=== PATIENT | male | born 1945 | race African-American/Black ===

== ENCOUNTER 2024-11-16 13:24 | Outpatient (AMB) | payer MEDICARE, SELFPAY ==
--- NOTE | 2024-11-16 13:26 | MHC.OFFVIS ---
Vital Signs 11/16/24 13:31 Height 5 ft 4 in Weight 131 lb BMI 22.5 BP 130/64 Blood Pressure Location Lt brachial Position Sitting Pulse 90 Pulse Source Pulse Oximeter Pulse Oximetry (%) 99 Oxygen Delivery Method Room Air Intake Visit Reasons: ENP-Tremor/Upper ext neuropathy Intake Note: Patient present with new patient appointment for tremor and upper extremity neuropathy Market Research Consultant Required: No Accompanied by: Self / Same As Patient Allergies Penicillins Allergy (Unknown, Verified 11/16/24 13:32) Unknown Medication List - Last Reconciled 11/16/24 by Alicja Venegas MD bimatoprost 0.01% (Lumigan) 1 drp ophthalmic (eye) DAILY cyanocobalamin (vitamin B-12) 1,000 mcg PO DAILY cyclobenzaprine 5 mg PO TID PRN dorzolamide 2% 2 drps ophthalmic (eye) BID finasteride (Proscar) 5 mg PO DAILY fluticasone propionate 50 mcg/actuation (Allergy Relief (fluticasone)) 2 sprays intranasal DAILY losartan-hydrochlorothiazide 100-25 mg (Hyzaar) 1 tab PO DAILY omeprazole 40 mg PO DAILY HPI Comments Details: 79y/o Right handed male comes for evaluation of tremors and left leg pain and numbness. He started notices left toe tremors intermittently 2-3 years. He denies pain or stiffness when he has the tremors. He had 1 episode of tremors in left hand. The tremors are worse when cold. About 1 year ago he started noticing numbness in his lateral leg- knee to ankle intermittently. He denies weakness in his legs. He also has left hip pain . He denies any radiating pain. For the past 3 days he has stiffness in his knees when he wakes up in the morning.. 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 FORMERLY [facility] Medical History (Updated 11/16/24 @ 14:06 by Alicja Venegas MD) Knee pain Aneurysm Left leg numbness Coarse tremors Hiatal hernia IBS (irritable bowel syndrome) Lactose intolerance Cystic kidney disease, congenital Splenic infarction Thrombocytopenia GERD (gastroesophageal reflux disease) Enlarged prostate with lower urinary tract symptoms (LUTS) PIN (prostatic intraepithelial neoplasia) Hypertension Diverticulosis Cervical radiculopathy Epigastric pain Sickle cell trait Sinus bradycardia COVID Chest pain Family History Father Prostate cancer Sister Breast cancer Social History Alcohol intake: current Alcohol intake frequency: holidays/special occasions only Patient Tobacco Use Status: Never used Tobacco Physical Exam Vital Signs: Last Vital Signs Pulse 90 11/16/24 13:31 BP 130/64 11/16/24 13:31 Pulse Ox 99 11/16/24 13:31 Oxygen Delivery Method Room Air 11/16/24 13:31 BMI result Body Mass Index 22.5 Const General: cooperative, healthy appearing, comfortable and no acute distress Nutritional Appearance: average body habitus Orientation/consciousness: patient oriented x3 Neuro Other: intermittent left foot tremors General: patient oriented x3, gait normal, tone normal, moves all extremities and no focal motor deficits Cranial nerves: Yes Facial sensation intact/muscles of mastication intact, Yes Bilaterally intact EOM present, Yes Nystagmus not present, Yes Normal facial strength present, Yes Midline tongue present, Yes Symmetric palate elevation present and Yes Ability to bilaterally elevate shoulders present Cognition (Neuro): normal cognition Gait exam (Neuro): Normal gait present Motor exam (neuro): 5/5 motor strength present throughout and Normal motor muscle tone present throughout Deep tendon reflexes (DTR's): Right triceps reflex intensity grade: 1+, Left triceps reflex intensity grade: 1+, Rt Biceps (C5, C6): 1+, Left biceps reflex intensity grade: 1+, Right brachioradialis reflex intensity grade: 1+, Left brachioradialis reflex intensity grade: 1+, Right patellar reflex intensity grade: 1+ and Left patellar reflex intensity grade: 1+ Coordination: [id number] test normal Assessment & Plan Assessment & Plan (1) Coarse tremors: Comment: left foot intermittent Code(s): G25.2 - Other specified forms of tremor Category: Medical (2) Left leg numbness: Code(s): R20.0 - Anesthesia of skin Category: Medical (3) Aneurysm: Comment: 3mm right cavernous ICA Code(s): I72.9 - Aneurysm of unspecified site Category: Medical Plan I will evaluate him with EMG The tremors are intermittent and mild - can be followed up clinically MRI and mRA reviewed PT for knee stiffness and pain- Orders: Orders NE electromyogram (EMG) Today R20.0 - Anesthesia of skin NE nerve conduction velocity Today R20.0 - Anesthesia of skin PT Evaluation and Treatment Today M25.569 - Pain in unspecified knee Coding Level of Care Code New Pt Level 4 (97742) Diagnoses Coarse tremors G25.2 Left leg numbness R20.0 Aneurysm I72.9
[2024-11-16 13:31] VITALS: BP 130/64; PULSE 90; O2SAT 99; BMI 22.5
--- OUTSIDE RECORDS SUMMARY | 2024-11-16 15:49 | XMS_ITS | Encounter Summary ---
Author Organization [facility] Address [address] [place] [address] Care Team Providers Care Motor Coach Chauffeur Name Role Phone Brandon Bates MD Primary Care Provider [phone] Encounter Details Date Type Department Care Team (Late st Contact Info) Description 08/09/2024 Lab Requisition [facility] - Main Lab [address] [facility] [place] [address] Shashi Andrea MD [address] [place] [address] Elevated prostate specific antigen (PSA) Social History Tobacco Use Types Packs/Day Years Used Date Smoking Tobacco: Never Smokeless Tobacco: Never Alcohol Use Standard Drinks/Week Comments Yes 0 (1 standard drink = 0.6 oz pur e alcohol) Housing Instability Answer Date Recorde d Are you worried that in the next 2 months you may not have stable housing? No 07/20/2024 Food Access & Nutrition Answer Date Rec orded Do you have access to a vari ety of food including fruits and vegetables? Yes 07/20/2024 Health Literacy Answer Date Recorded How often do you need to hav e someone help you when you read instructions, pamphlets, or other written material from your doctor or pharmacy? Never 07/20/2024 Caregiver: How often do you need to have someone help you when you read instructions, pamphlets, or other written material from your doctor or pharmacy? Not on file 07/20/2024 Financial Risk Answer Date Recorded How hard is it for you to pa y for the very basics like food, housing, medical care, and air conditioning / heating? Not very hard 07/20/2024 Transportation Answer Date Recorded Has the lack of transportati on kept you from meetings, work, or from getting things needed for daily living? No Has the lack of transportati on kept you from medical appointments or from getting medications? No 07/20/2024 Social Isolation Answer Date Recorded How often do you feel lonely or isolated from th ose around you? Never 07/20/2024 Food Risk Answer Date Recorded Within the past 12 months we worried whether our food would run out before we got money to buy more. Never true 07/20/2024 Within the past 12 months th e food we bought just didn't last and we didn't have money to get more. Never true 07/20/2024 Dependent Care Answer Date Recorded Do you need help finding or paying for care for your loved ones. For example, child welfare social worker or elderly care for an older adult? No 07/20/2024 Education Answer Date Recorded Do you think completing more education or training, like finishing a GED, going to college, or learning a trade, would be helpful for you? No 07/20/2024 Employment and Income Answer Date Recor ded During the last four weeks, have you been actively looking for work? No 07/20/2024 Living Situation Answer Date Recorded What is your living situation? 0 07/20/2024 Sex and Gender Information Value Date Recorded Sex Assigned at Male 04/26/2024 2:28 PM EST Legal Sex Male 9:58 AM EST Gender Identity Male 04/26/2024 2:28 PM EST Sexual Orientation Not on file documented as of this encounter Plan of Treatment Upcoming Encounters Date Type Department Care Team (Late st Contact Info) Description 05/21/2025 11:00 AM EST Office Visit [facility] Hematology Oncology [address] [place] [address] Tessie Christine MD [address] [place] [id number] documented as of this encounter Procedures Procedure Name Priority Date/Time Associated Diagnosis Comments AP OUTSIDE CONSULT Routine 08/08/2024 Elevated prostate specific antigen (PSA) documented in this encounter Results * Anatomic pathology outside consult (08/08/2024) Final Diagnosis A. Prostate, Left Mid [place] Biopsy: - Benign prostatic tissue. B. Prostate, Left Lat [place] Biopsy: - Benign prostatic tissue. C. Prostate, Left Mid Mid Biopsy: - Benign prostatic tissue. D. Prostate, Left Lat Mid Biopsy: - Benign prostatic tissue. E. Prostate, Left Mid Base Biopsy: - Benign prostatic tissue. F. Prostate, Left Lat Base Biopsy: - Benign prostatic tissue. G. Prostate, Right Mid [place] Biopsy: - Benign prostatic tissue. H. Prostate, Right Lat [place] Biopsy: - Benign prostatic tissue. I. Prostate, Right Mid Mid Biopsy: - Benign prostatic tissue. J. Prostate, Right Lat Mid Biopsy: - Benign prostatic tissue. K. Prostate, Right Mid Base Biopsy: - Prostatic acinar adenocarcinoma (conventional type), grade group 1 (Zena score 3+3=6). - Tumor continuously involves 3% of 1 of 1 tissue core. L. Prostate, Right Lat Base Biopsy: - Benign prostatic tissue. 08/10/2024 9:07 AM [facility] Clinical Information Elevated PSA PSA: 15.8 (06/19/24) [id number] 08/10/2024 9:[address] [facility] Gross Description A. Prostate, Left Mid [place] Biopsy: Received, properly labeled, are two H and E stained slides and two unstained slides. B. Prostate, Left Lat [place] Biopsy: Received, properly labeled, are two H and E stained slides and two unstained slides. C. Prostate, Left Mid Mid Biopsy: Received, properly labeled, are two H and E stained slides and two unstained slides. D. Prostate, Left Lat Mid Biopsy: Received, properly labeled, are two H and E stained slides and two unstained slides. E. Prostate, Left Mid Base Biopsy: Received, properly labeled, are two H and E stained slides and two unstained slides. F. Prostate, Left Lat Base Biopsy: Received, properly labeled, are two H and E stained slides and two unstained slides. G. Prostate, Right Mid [place] Biopsy: Received, properly labeled, are two H and E stained slides and two unstained slides. H. Prostate, Right Lat [place] Biopsy: Received, properly labeled, are two H and E stained slides and two unstained slides. I. Prostate, Right Mid Mid Biopsy: Received, properly labeled, are two H and E stained slides and two unstained slides. J. Prostate, Right Lat Mid Biopsy: Received, properly labeled, are two H and E stained slides and two unstained slides. K. Prostate, Right Mid Base Biopsy: Received, properly labeled, are two H and E stained slides and two unstained slides. L. Prostate, Right Lat Base Biopsy: Received, properly labeled, are two H and E stained slides and two unstained slides. / 08/10/2024 9:07 AM [facility] Disclaimer Unless otherwise specified, all tissue is 10% NB formalin fixed and paraffin embedded. Technical pathology services provided by [facility] at [address] [place] [address] [address], [place] [address] (CLIA #[id number]/Stephy Monterroso MD, Press Manager) 08/10/2024 9:07 AM [facility] Tissue Prostate / Unknown 08/08/20242024 11:22 AM EST Tissue specimen (specimen) Prostate / Unknown 08/08/2024 08/09/2024 11 :24 AM EST Tissue specimen (specimen) Prostate / Unknown 08/08/2024 08/09/2024 11 :24 AM EST Tissue specimen (specimen) Prostate / Unknown 08/08/2024 08/09/2024 11 :24 AM EST Tissue specimen (specimen) Prostate / Unknown 08/08/2024 08/09/2024 11 :24 AM EST Tissue specimen (specimen) Prostate / Unknown 08/08/2024 08/09/2024 11 :24 AM EST Tissue specimen (specimen) Prostate / Unknown 08/08/2024 08/09/2024 11 :24 AM EST Tissue specimen (specimen) Prostate / Unknown 08/08/2024 08/09/2024 11 :24 AM EST Tissue specimen (specimen) Prostate / Unknown 08/08/2024 08/09/2024 11 :24 AM EST Tissue specimen (specimen) Prostate / Unknown 08/08/2024 08/09/2024 11 :24 AM EST Tissue specimen (specimen) Prostate / Unknown 08/08/2024 08/09/2024 11 :24 AM EST Tissue specimen (specimen) Prostate / Unknown 08/08/2024 08/09/2024 11 :24 AM EST Shashi Andrea MD LAB PATHOLOGY ORDERABLES Final Result [facility] [address] [place] [address], documented in this encounter Visit Diagnoses Diagnosis Elevated prostate specific antigen (PSA) documented in this encounter Additional Health Concerns Assessment Noted Time PHQ-9 Depression Total Score: 0 07/20/19 25 8:18 PM EST documented as of this encounter Care Teams Motor Coach Chauffeur Relationship Specialty Start Date End Date Brandon Bates MD [address] [place] [id number] PCP - General Internal Medicine 05/13/17 documented as of this encounter
== END 2024-11-16 14:16 | disposition home or self-care (01) ==
LOC: HO.HSMS 13:25
PROVIDERS: PCP Internal Medicine; Visit Provider Psychiatry & Neurology Neurology
DX: G25.2 Other specified forms of tremor (principal); R20.0 Anesthesia of skin; I72.9 Aneurysm of unspecified site
CPT/HCPCS: 99204

== ENCOUNTER → 2024-11-16 13:24 | Outpatient (BNVA) | payer MEDICARE, SELFPAY | PROVIDERS: PCP Internal Medicine; Visit Provider Psychiatry & Neurology Neurology | DX: R20.0 Anesthesia of skin (principal); G25.2 Other specified forms of tremor; I72.9 Aneurysm of unspecified site | CPT/HCPCS: 99202 ==

== ENCOUNTER 2025-03-19 12:49 | Outpatient (AMB) | payer MEDICARE, SELFPAY ==
--- NOTE | 2025-03-19 12:50 | A.OFFVIS_ITS ---
Vital Signs 03/19/25 12:51 Height 5 ft 4 in Weight 125 lb 8 oz BMI 21.5 BP 132/70 Blood Pressure Location Rt brachial Position Sitting Pulse 64 Pulse Source Pulse Oximeter Pulse Oximetry (%) 100 Oxygen Delivery Method Room Air Intake Visit Reasons: 4m follow up Intake Note: Follow up Parkinson's disease with dyskinesia, tremors and aneurysm Flat Finisher Required: No Accompanied by: Self / Same As Patient Allergies Penicillins Allergy (Unknown, Verified 03/19/25 12:51) Unknown Medication List - Last Reconciled 03/19/25 by Alicja Venegas MD bimatoprost 0.01% (Lumigan) 1 drp ophthalmic (eye) DAILY cyanocobalamin (vitamin B-12) 1,000 mcg PO DAILY cyclobenzaprine 5 mg PO TID PRN dorzolamide 2% 2 drps ophthalmic (eye) BID fluticasone propionate 50 mcg/actuation (Allergy Relief (fluticasone)) 2 sprays intranasal DAILY losartan-hydrochlorothiazide 100-25 mg (Hyzaar) 1 tab PO DAILY omeprazole 40 mg PO DAILY HPI Comments Details: 80y/o Right handed male comes for F/u of tremors and left leg pain and num bness.He has been doing good. He thinks the warm weather helps. EMG NCS was normal . He is c/o tingling and numbness in left foot. He is also c/o left hip pain - ortho thinks it is sciatica History from 11/2024 He started notices left toe tremors intermittently 2-3 years. He denies pain or stiffness when he has the tremors. He had 1 episode of tremors in left hand. The tremors are worse when cold. About 1 year ago he started noticing numbness in his lateral leg- knee to ankle intermittently. He denies weakness in his legs. He also has left hip pain . He denies any radiating pain. For the past 3 days he has stiffness in his knees when he wakes up in the morning.. 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 FORMERLY [facility], [facility] Medical History (Updated 03/19/25 @ 13:20 by Alicja Venegas MD) Left hip pain Knee pain Aneurysm Left leg numbness Coarse tremors Hiatal hernia IBS (irritable bowel syndrome) Lactose intolerance Cystic kidney disease, congenital Splenic infarction Thrombocytopenia GERD (gastroesophageal reflux disease) Enlarged prostate with lower urinary tract symptoms (LUTS) PIN (prostatic intraepithelial neoplasia) Hypertension Diverticulosis Cervical radiculopathy Epigastric pain Sickle cell trait Sinus bradycardia COVID Chest pain Family History Father Prostate cancer Sister Breast cancer Social History Alcohol intake: current Alcohol intake frequency: holidays/special occasions only Patient Tobacco Use Status: Never used Tobacco Physical Exam Vital Signs: Last Vital Signs Pulse 64 03/19/25 12:51 BP 132/70 03/19/25 12:51 Pulse Ox 100 03/19/25 12:51 Oxygen Delivery Method Room Air 03/19/25 12:51 BMI result Body Mass Index 21.5 Const General: cooperative, healthy appearing, comfortable and no acute distress Nutritional Appearance: average body habitus Orientation/consciousness: patient oriented x3 Neuro Other: intermittent left foot tremors General: patient oriented x3, gait normal, tone normal, moves all extremities and no focal motor deficits Cranial nerves: Yes Facial sensation intact/muscles of mastication intact, Yes Bilaterally intact EOM present, Yes Nystagmus not present, Yes Normal facial strength present, Yes Midline tongue present, Yes Symmetric palate elevation present and Yes Ability to bilaterally elevate shoulders present Cognition (Neuro): normal cognition Gait exam (Neuro): Normal gait present Motor exam (neuro): 5/5 motor strength present throughout and Normal motor muscle tone present throughout Coordination: [id number] test normal Assessment & Plan Assessment & Plan (1) Coarse tremors: Comment: left foot intermittent Code(s): G25.2 - Other specified forms of tremor Category: Medical (2) Left leg numbness: Comment: emg - normal Code(s): R20.0 - Anesthesia of skin Category: Medical (3) Aneurysm: Comment: 3mm right cavernous ICA Code(s): I72.9 - Aneurysm of unspecified site Category: Medical (4) Left hip pain: Comment: ? sciatica Code(s): M25.552 - Pain in left hip Category: Medical Plan EMG results discussed The tremors are intermittent and mild - can be followed up clinically MRI and mRA reviewed PT for left hip and knee pain Orders: Orders PT Evaluation and Treatment Today M25.552 - Pain in left hip Coding Level of Care Code Est Pt Level 4 (22764) Diagnoses Coarse tremors G25.2 Left leg numbness R20.0 Aneurysm I72.9 Left hip pain M25.552
[2025-03-19 12:51] VITALS: BP 132/70; PULSE 64; O2SAT 100; BMI 21.5
--- OUTSIDE RECORDS SUMMARY | 2025-03-19 15:12 | XMS_ITS | Clinical Summary ---
Author Organization [facility] Address [address] [place] [address] Phone Care Team Providers Care Refrigeration Mechanic Helper Name Role Phone Brandon Bates MD Primary Care Provider [phone] Allergies Active Allergy Reactions Criticality Noted Date Comments Penicillins 11/04/2017 Medications bimatoprost (LUMIGAN) 0.01 % ophthalmic drops Bedtime 8 Active cyclobenzaprin e (FLEXERIL) 5 mg tablet Take 1 tablet (5 mg total) by mouth 3 (three) times a day if needed for muscle spasms. 30 tablet 1 5 Active omeprazole (PriLOSEC) [address] capsule TAKE 1 CAPSULE BY MOUTH EVERY DAY 90 capsule 1 5 Active losartan-hydro CHLOROthiazide (HYZAAR) 100-25 mg per tablet TAKE 1 TABLET BY MOUTH EVERY DAY 90 tablet 5 Active losartan-hydro CHLOROthiazide (HYZAAR) 100-25 mg per tablet TAKE 1 TABLET BY MOUTH EVERY DAY 90 tablet 1 5 03/16/20 25 Discontinued Active Problems Problem Noted Date Diagnosed Date Pain of left hip 08/24/2024 Sickle cell trait (CMS/HCC V24) 07/21/2024 Numbness and tingling of right upper extremity 0 11/26/2017 Cervical radiculopathy Overview (08/24/2024): DX:Cervical radiculopathy Encounters Date Type Department Care Team Description 02/19/2025 8:45 AM EDT Office Visit [facility] Hematology Oncology [address] [place] [address] Tessie Christine MD Anemia of chronic disease (Primary Dx); Sickle cell trait ([facility] V24); Monoclonal gammopathy 02/13/[address] [facility] Hematology Oncology [address] [place] [phone] Tessie Christine MD 01/08/[address] [facility] Hematology Oncology [address] [place] [phone] Tessie Christine MD 01/08/[address] [facility] Hematology Oncology [address] [place] [phone] Marguerite Velasco MA 01/03/[address] [facility] Hematology Oncology [address] [place] [phone] Tessie Christine MD 12/25/[address] [facility] Hematology Oncology [address] [place] [phone] Marguerite Velasco MA 12/22/2024 8:45 AM EDT Office Visit [facility] Hematology Oncology [address] [place] [phone] Tessie Christine MD MDS (myelodysplastic syndrome) ([facility] V24, [facility] V28) (Primary Dx); MGUS (monoclonal gammopathy of unknown significance) from Last 3 Months Immunizations Immunization Administration Dates Next Due Influenza trivalent, 0.5mL ( Fluzone High-dose) 65yo and older 03/03/2025 Pfizer SARS-CoV-2 COVID-19, mRNA, LNP-S, preservative free 09/13/2021,03/08/2021,08/10/2020,07/20 Pneumococcal conjugate 13 va lent (Prevnar 13, PCV13) 2mo and older 03/12/2017 Pneumococcal conjugate 20 va lent (Prevnar 20, PCV 20) 2mo and older 02/19/2025 Pneumococcal polysaccharide 23 valent (Pneumovax 23) 2yo and older 03/20/2019 Td Tetanus diptheria (Tdvax) 7yo and older 05/18/2022 Tdap Tetanus diptheria acell ular pertussis (Boostrix; Adacel) 7yo and older 01/01/2016,03/13/2011 Zoster recombinant (Shingrix ) 19yo and older 03/23/2022,01/06/2022 Medical History Medical History Date Comments Anemia DX:Anemia Sickle cell trait ([facility] V24) DX:Sickle cell trait ([facility]) Diabetes mellitus ([facility] V 24, [facility] V28) DX:Diabetes mellitus ([facility]) Emphysema of lung ([facility] V 24, [facility] V28) DX:Emphysema of lung (HCC) Cervical radiculopathy 12/28/2017 DX:Cervic al radiculopathy Cystic kidney disease, congenital 11/27/2014 DX:Cystic kidney disease, congenital Diverticulosis 12/03/2017 DX:Diverticulosi s Enlarged prostate with lower urinary tract symptoms (LUTS) 12/03/2017 DX:Enlarged prostate with lo wer urinary tract symptoms (LUTS) GERD (gastroesophageal reflux disease) 03/12/2017 DX:GERD (gastroesophageal reflux disease) Hiatal hernia 01/14/2011 DX:Hiatal hernia Hypertension 12/03/2017 DX:Hypertension Irritable bowel syndrome 06/11/2014 DX:Irri table bowel syndrome Lactase deficiency 08/15/2014 DX:Lactase de ficiency 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 DX: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 For example, child care worker or elderly care for an older [...] Date Recorded What is your living situation? Unrecognized valu e 07/20/2024 Sex and Gender Information Value Date Recorded Sex Assigned at Male 04/26/2024 2:28 PM EST Legal Sex Male 9:58 AM EST Gender Identity Male 04/26/2024 2:28 PM EST Sexual Orientation Not on file Obstetrics History Last Filed Vital Signs Vital Sign Reading Time Taken Comments Blood Pressure 155/72 02/19/2025 8:40 AM EDT Pulse 66 02/19/2025 8:40 AM EDT Temperature 36.1 C (96.9 F) 02/19/2025 8:40 AM EDT Respiratory Rate - - Oxygen Saturation 100% 02/19/2025 8:40 AM EDT Inhaled Oxygen Concentration - - Weight 56.7 kg (125 lb) 02/19/2025 8:40 AM EDT Height 165.1 cm (5' 5 ) 10/24/2024 8:52 AM EDT Body Mass Index 20.8 10/24/2024 8:52 AM EDT Plan of Treatment Upcoming Encounters Date Type Department Care Team (Late st Contact Info) Description 05/21/2025 11:00 AM EST Office Visit [facility] Hematology Oncology [address] [place] [phone] Tessie Christine MD [address] [place] [address] Health Maintenance Due Date Last Done Comments RSV Immunization Adult Patients (1 - 1-dose 75+ series) 02/02/2019 Medicare Annual Wellness Visit 05/23/2022 COVID-19 Vaccine (7 - Pfizer risk 2023- season) 2025 04/19/2024, 05/06/2022, 09/13/2021, Additional history exists Social Influencers of Health Screening 07/20/2025 07/20/2024 Falls Risk Assessment 10/24/2025 10/24/2024 Hypertension/CHF/CAD Annual BMP Blood Test 02/14/2026 02/14/2025, 12/18/2024, 03/20/2024 Cholesterol Screening (Lipid Panel) 07/21/2029 07/21/2024, 03/20/2024 DTaP,Tdap,and Td Vaccines (4 - Td or Tdap) 05/18/2032 05/18/2022, 01/01/2016, 03/13/2011 Zoster Vaccines Completed 03/23/2022, 01/06/2022 Depression Screening Completed 10/23/2024 Pneumococcal Vaccine: 50+ Years Completed 02/19/2025, 03/20/2019, 03/12/2017 Influenza Vaccine Completed 03/03/2025 HIB Vaccines Aged Out No longer eligi ble based on patient's age to complete this topic HPV Vaccines Aged Out No longer eligi ble based on patient's age to complete this topic Hepatitis A Vaccines Aged Out No long er eligible based on patient's age to complete this topic Hepatitis B Vaccines Aged Out No long er eligible based on patient's age to complete this topic IPV Vaccines Aged Out No longer eligi ble based on patient's age to complete this topic MMR Vaccines Aged Out No longer eligi ble based on patient's age to complete this topic Meningococcal ACWY Vaccine Aged Out N o longer eligible based on patient's age to complete this topic Meningococcal B Vaccine Aged Out No l onger eligible based on patient's age to complete this topic RSV Immunization Patients Under 20 months Aged Out No longer eligible based on patient's age to complete this topic Varicella Vaccines Aged Out No longer eligible based on patient's age to complete this topic Goals Goal Patient Goal Type Associated Problems Recent Progress Patient-Stated? Author PT LTGs General No Liam Hwang, PT Note: Pt will ambulate x6 minutes without LLE pain Pt will report no LLE pain with sit to stand x5 reps Pt will be independent with HEP Procedures Procedure Name Priority Date/Time Associated Diagnosis Comments CBC WITH AUTO DIFFERENTIAL Routine 02/14/2025 8:25 AM EDT MDS (myelodysplastic syndrome) ([facility] V24, [facility] V28) IMMUNOGLOBULINS IGG, IGA, IGM Routine 02/14/2025 8:25 AM EDT Myelodysplastic syndrome ([facility] V24, [facility] V28) COMPREHENSIVE METABOLIC PANEL Routine 02/14/2025 8:25 AM EDT MDS (myelodysplastic syndrome) ([facility] V24, [facility] V28) CBC AND DIFFERENTIAL Routine 02/14/2025 8:25 AM EDT MDS (myelodysplastic syndrome) ([facility] V24, [facility] V28) PROTHROMBIN TIME WITH INR Routine 01/03/2025 9:12 AM EDT MDS (myelodysplastic syndrome) ([facility] V24, [facility] V28) CBC WITH AUTO DIFFERENTIAL Routine 12/18/2024 10:16 AM EDT Anemia, unspecified type IgG lambda monoclonal gammopathy COMPREHENSIVE METABOLIC PANEL Routine 12/18/2024 10:16 AM EDT Anemia, unspecified type IgG lambda monoclonal gammopathy CBC AND DIFFERENTIAL Routine 12/18/2024 10:16 AM EDT Anemia, unspecified type IgG lambda monoclonal gammopathy LIPID PANEL WITH REFLEX TO DIRECT LDL Routine 07/21/2024 9:07 AM EST Primary hypertension from Last 3 Months or Most Recently Relevant to Health Maintenance Results * (ABNORMAL) CBC auto differential (02/14/2025 8:25 AM EDT) Only the most recent of2 resultswithin the time period is included. [facility] Signature WBC 3.9(L) 4.8 - 10.8 K/mcL LAB HEMETOLOGY METHOD 02/14/2025 11:48 AM EDT [facility] RBC 3.50(L) 4.50 - 5.50 M/mcL LAB HEMETOLOGY METHOD 02/14/2025 11:48 AM [facility] Hemoglobin 10.5(L) 13.5 - 17.5 g/dL LAB HEMETOLOGY METHOD 02/14/2025 11:48 AM [facility] Hematocrit 29.7(L) 42.0 - 54.0 % LAB HEMETOLOGY METHOD 02/14/2025 11:48 AM [facility] MCV 84.4 79.0 - 98.0 FL LAB HEMETOLOGY METHOD 02/14/2025 11:48 AM [facility] MCH 29.8 27.0 - 32.0 pcg LAB HEMETOLOGY METHOD 02/14/2025 11:48 AM [facility] MCHC 35.4 32.0 - 37.0 g/dL LAB HEMETOLOGY METHOD 02/14/2025 11:48 AM [facility] RDW 14.0 11.0 - 15.0 % LAB HEMETOLOGY METHOD 02/14/2025 11:48 AM [facility] Platelets 132 130 - 400 K/mcL LAB HEMETOLOGY METHOD 02/14/2025 11:48 AM [facility] MPV 12.9(H) 7.0 - 11.0 FL LAB HEMETOLOGY METHOD 02/14/2025 11:48 AM [facility] NRBC 0.0 <1.0 % LAB HEMETOLOGY METHOD 02/14/2025 11:48 AM [facility] NRBC Absolute 0.00 <0.10 K/mcL LAB HEMETOLOGY METHOD 02/14/2025 11:48 AM [facility] Neutrophils Relative 36.5 % LAB HEMETOLOGY METHOD 02/14/2025 11:48 AM [facility] Lymphocytes Relative 40.9 % LAB HEMETOLOGY METHOD 02/14/2025 11:48 AM [facility] Monocytes Relative 12.2 % LAB HEMETOLOGY METHOD 02/14/2025 11:48 AM [facility] Eosinophils Relative 9.1 % LAB HEMETOLOGY METHOD 02/14/2025 11:48 AM [facility] Basophils Relative 0.5 % LAB HEMETOLOGY METHOD 02/14/2025 11:48 AM EDT [facility] Immature Granulocytes Relative 0.8 % LAB HEMETOLOGY METHOD 02/14/2025 11:48 AM EDT [facility] Neutrophils Absolute 1.44(L) 1.50 - 7.00 K/[facility] LAB HEMETOLOGY METHOD 02/14/2025 11:48 AM EDT [facility] Lymphocytes Absolute 1.61 1.00 - 5.00 K/[facility] LAB HEMETOLOGY METHOD 02/14/2025 11:48 AM EDT [facility] Monocytes Absolute 0.48 0.20 - 1.00 K/[facility] LAB HEMETOLOGY METHOD 02/14/2025 11:48 AM EDT [facility] Eosinophils Absolute 0.36 0.00 - 0.50 K/[facility] LAB HEMETOLOGY METHOD 02/14/2025 11:48 AM EDT [facility] Basophils Absolute 0.02 0.00 - 0.20 K[facility] LAB HEMETOLOGY METHOD [facility] Immature Granulocytes Absolute 0.03 0.00 - 0.03 K/mcL LAB HEMETOLOGY METHOD 02/14/2025 11:48 AM [facility] Blood Venous blood specimen / Unknown Venipuncture / Unknown 02/14/2025 8:25 AM EDT 02/14/2025 11:27 AM EDT Tessie Christine MD LAB BLOOD ORDERABLES Final R esult [facility] [address] [place] [address], * Immunoglobulins IgG, IgA, IgM (02/14/2025 8:25 AM EDT) Total IgG 1,260 549 - 1,584 mg/dL LAB CHEMISTRY METHOD 02/14/2025 12:34 PM EDT [facility] IgA 86 61 - 348 mg/dL LAB CHEMISTRY METHOD 02/14/2025 12:34 PM T [facility] IgM 42 23 - 259 mg/dL LAB CHEMISTRY METHOD 02/14/2025 12:34 PM [facility] Blood Venous blood specimen / Unknown Venipuncture / Unknown 02/14/2025 8:25 AM EDT 02/14/2025 11:28 AM EDT us Tessie Christine MD LAB BLOOD ORDERABLES Final R esult [facility] [address] [place] [address], [place] [phone] * (ABNORMAL) Comprehensive metabolic panel (02/14/2025 8:25 AM EDT) Only the most recent of2 resultswithin the time period is included. Sodium 141 133 - 145 mmol/L LAB CHEMISTRY METHOD 02/14/2025 12:34 PM [facility] Potassium 3.5 3.5 - 5.5 mmol/L LAB CHEMISTRY METHOD 02/14/2025 12:34 PM [facility] Chloride 106 96 - 110 mmol/L LAB CHEMISTRY METHOD 02/14/2025 12:34 PM [facility] CO2 30 21 - 32 mmol/L LAB CHEMISTRY METHOD 02/14/2025 12:34 PM [facility] Anion Gap 5 3 - 11 LAB CHEMISTRY METHOD 02/14/2025 12:34 PM [facility] Glucose 97 70 - 100 mg/dL LAB CHEMISTRY METHOD 02/14/2025 12:34 PM [facility] BUN 17 5 - 25 mg/dL LAB CHEMISTRY METHOD 02/14/2025 12:34 PM [facility] Creatinine 1.27 0.70 - 1.30 mg/dL LAB CHEMISTRY METHOD 02/14/2025 12:34 PM [facility] eGFR 57(L) >=60 mL/min/1. 73m2 LAB CHEMISTRY METHOD 02/14/2025 12:34 PM [facility] Comment:Calculation based on the Chronic Kidney Disease Epidemiology Collaboration (CKD-EPI) equation refit without adjustment for race. BUN/Creatinine Ratio 13.4 LAB CHEMISTRY METHOD 02/14/2025 12:34 PM [facility] Calcium 9.1 8.5 - 10.5 mg/dL LAB CHEMISTRY METHOD 02/14/2025 12:34 PM [facility] AST (SGOT) 25 10 - 42 unit/L LAB CHEMISTRY METHOD 02/14/2025 12:34 PM [facility] ALT (SGPT) 22 10 - 60 unit/L LAB CHEMISTRY METHOD 02/14/2025 12:34 PM [facility] Alkaline Phosphatase 65 42 - 121 unit/L LAB CHEMISTRY METHOD 02/14/2025 12:34 PM [facility] Total Protein 6.7 6.0 - 8.0 g/dL LAB CHEMISTRY METHOD 02/14/2025 12:34 PM [facility] Albumin 3.9 3.2 - 5.0 g/dL LAB CHEMISTRY METHOD 02/14/2025 12:34 PM [facility] Total Bilirubin 1.0 0.0 - 1.4 mg/dL LAB CHEMISTRY METHOD 02/14/2025 12:34 PM [facility] Blood Venous blood specimen / Unknown Venipuncture / Unknown 02/14/2025 8:25 AM EDT 02/14/2025 11:28 AM EDT us Tessie Christine MD LAB BLOOD ORDERABLES Final R esult [facility] [address] [place] [address], [place] [phone] * Prothrombin time with INR (01/03/2025 9:12 AM EDT) Protime 12.8 10.6 - 13.9 sec LAB COAGULATION METHOD 01/03/2025 10:24 AM EDT [facility] INR 1.0 LAB COAGULATION METHOD 01/03/2025 10:24 AM EDT [facility] Blood Venous blood specimen / Unknown Venipuncture / Unknown 01/03/2025 9:12 AM EDT 01/03/2025 9:57 AM EDT Tessie Christine MD LAB BLOOD ORDERABLES Final R esult [facility] [address] [place] [address], * Lipid panel with reflex to direct LDL (07/21/2024 9:07 AM EST) Pathologist [facility] Cholesterol 133 0 - 200 mg/dL LAB CHEMISTRY METHOD 07/21/2024 1:17 PM [facility] Triglycerides 44 0 - 150 mg/dL LAB CHEMISTRY METHOD 07/21/2024 1:17 PM [facility] Comment:Results verified by repeat testing HDL 65 >=40 mg/dL LAB CHEMISTRY METHOD 07/21/2024 1:17 PM [facility] LDL Calculated 59 0 - 100 mg/dL LAB CHEMISTRY METHOD 07/21/2024 1:17 PM [facility] VLDL Cholesterol Santiago 8.8 mg/dL LAB CHEMISTRY METHOD 07/21/2024 1:17 PM [facility] Non HDL Chol. (LDL+VLDL) 68 <145 mg/dL LAB CHEMISTRY METHOD 07/21/2024 1:17 PM [facility] Chol/HDL Ratio 2.0 0.0 - 4.4 LAB CHEMISTRY METHOD 07/21/2024 1:17 PM EST [facility] Blood Venous blood specimen / Unknown Venipuncture / Unknown 07/21/2024 9:07 AM EST 07/21/2024 9:07 AM EST us Brandon Bates MD LAB BLOOD ORDERABLES Final Res ult [facility] [address] [place] [address], from Last 3 Months or Most Recently Relevant to Health Maintenance Insurance [employer] Care Teams Refrigeration Mechanic Helper Relationship Specialty Start Date End Date Brandon Bates MD [address] [place] [id number] PCP - General Internal Medicine 05/13/17
--- OUTSIDE RECORDS SUMMARY | 2025-03-19 15:12 | XMS_ITS | Encounter Summary ---
Author Organization [facility] Address [address] [place] [address] Care Team Providers Care High [address] Justice Name Role Phone Brandon Bates MD Primary Care Provider [phone] Encounter Details Date Type Department Care Team (Late st Contact Info) Description 08/09/2024 Lab Requisition [facility] - Main Lab [address] [facility] [address] Shashi Andrea MD [address] [place] [address] Elevated prostate specific antigen (PSA) [...] do you feel lonely or isolated from ose around you? Never 07/20/2024 Food Risk [...] for your loved ones. For example, child psychologist or elderly care for an older adult? [...] Description 05/21/2025 11:00 AM EST Office Visit [facility] Hematology Oncology [address] [place] [address] Tessie Christine MD [address] [place] [address] documented as of this encounter Procedures Procedure Name Priority Date/Time Associated Diagnosis Comments AP OUTSIDE CONSULT Routine 08/08/2024 Elevated prostate specific antigen (PSA) documented in this encounter Results * Anatomic pathology outside consult (08/08/2024) Final Diagnosis A. Prostate, Left Mid [place] Biopsy: - Benign prostatic tissue. B. Prostate, Left Lat [place] Biopsy: - Benign prostatic tissue. C. Prostate, Left Mid Mid Biopsy: - Benign prostatic tissue. D. Prostate, Left Lat Mid Biopsy: - Benign prostatic tissue. E. Prostate, Left Mid [place] Biopsy: - Benign prostatic tissue. F. Prostate, Left Lat Base Biopsy: - Benign prostatic tissue. G. Prostate, Right Mid [place] Biopsy: - Benign prostatic tissue. H. Prostate, Right Lat [place] Biopsy: - Benign prostatic tissue. I. Prostate, Right Mid Mid Biopsy: - Benign prostatic tissue. J. Prostate, Right Lat Mid Biopsy: - Benign prostatic tissue. K. Prostate, Right Mid Base Biopsy: - Prostatic acinar adenocarcinoma (conventional type), grade group 1 ([place] score 3+3=6). - Tumor continuously involves 3% of 1 of 1 tissue core. L. Prostate, Right Lat Base Biopsy: - Benign prostatic tissue. 08/10/2024 9:07 AM [facility] Clinical Information Elevated PSA PSA: 15.8 (06/19/24) [id number] 08/10/2024 9:07 AM [facility] Gross Description A. Prostate, Left Mid [place] Biopsy: Received, properly labeled, are two H and E stained slides and two unstained slides. B. Prostate, Left Lat [place] Biopsy: Received, properly labeled, are two H [...] two unstained slides. G. Prostate, Right Mid [place] Biopsy: Received, properly labeled, are two H and E stained slides and two unstained slides. H. Prostate, Right Lat [place] Biopsy: Received, properly labeled, are two H [...] two unstained slides. / 08/10/2024 9:07 AM [facility] Disclaimer Unless otherwise specified, all tissue is 10% NB formalin fixed and paraffin embedded. Technical pathology services provided by [facility] at [address] [place] [address] [address], [place] [address] (CLIA #[id number]/Stephy Monterroso MD, Bundle Person) 08/10/2024 9:07 AM [facility] Tissue Prostate / Unknown 08/08/20242024 11:22 [...] Andrea MD LAB PATHOLOGY ORDERABLES Final Result [facility] [address] [place] [address], documented in this encounter Visit Diagnoses Diagnosis Elevated prostate specific antigen (PSA) documented in this encounter Additional Health Concerns Assessment Noted Time PHQ-9 Depression Total Score: 0 07/20/19 25 8:18 PM EST documented as of this encounter Care Teams High [address] Justice Relationship Specialty Start Date End Date Brandon Bates MD [address] [place] [id number] PCP - General Internal Medicine 05/13/17 documented as of this encounter
--- OUTSIDE RECORDS SUMMARY | 2025-03-19 15:12 | XMS_ITS | Clinical Summary ---
Author Organization [facility] Address [address] [place] [address] Care Team Providers Care Wheel Truer Name Role Phone Brandon Bates MD Primary Care Provider [phone] Allergies Active Allergy Reactions Criticality Noted Date Comments Penicillins 11/04/2017 Medications Medication Sig Dispensed Refills Start Date End Date Status valsartan-hydrochlorothiaz shakila (DIOVAN HCT) tablet 160-25 mg Take 1 tablet by mouth daily. 1 09/23/2017 Active omeprazole (PRILOSEC) 40 MG capsule Take 1 capsule (40 mg total) by mouth daily. 1 08/02/2017 Active cyclobenzaprine (FLEXERIL) 5 MG tablet Take 1 tablet (5 mg total) by mouth 3 (three) times a day. 5 09/11/2017 Active meloxicam (MOBIC) 15 MG tablet Take 1 tablet (15 mg total) by mouth daily. with food 3 09/11/2017 Active losartan 50 MG TABS 100 mg, hydroCHLOROthiazide 25 MG TABS 25 mg Take 1 tablet by mouth daily. 0 Active Active Problems Problem Noted Date Diagnosed Date Numbness and tingling of right upper extremity 0 11/26/2017 Family History Medical History Relation Name Comments Hypertension Mother Relation Name Status Comments Mother Social History Tobacco Use Types Packs/Day Years Used Date Smoking Tobacco: Never Assessed Sex and Gender Information Value Date Recorded Sex Assigned at Not on file Gender Identity Not on file Sexual Orientation Not on file Job Start Date Occupation Industry Not on file Not on file Not on file Last Filed Vital Signs Vital Sign Reading Time Taken Comments Blood Pressure 161/72 10/19/2023 2:44 PM EDT Pulse 86 10/19/2023 2:44 PM EDT Temperature 37 C (98.6 F) 10/19/2023 2:44 PM EDT Respiratory Rate - - Oxygen Saturation 100% 10/19/2023 2:44 PM EDT Inhaled Oxygen Concentration - - Weight 57.6 kg (127 lb) 10/19/2023 2:44 PM EDT Height 163.8 cm (5' 4.5 ) 10/19/2023 2:44 PM EDT Body Mass Index 21.46 10/19/2023 2:44 PM EDT Plan of Treatment Health Maintenance Due Date Last Done Comments Depression Screening 1957 Preventative Health Evaluation 02/02/1962 Fall Risk Assessment 02/02/2009 RSV Adult > 60+ Yrs or (1 - 1-dose 75+ series) 02/02/2019 COVID-19 Vaccine (2024- season) 2025 09/13/2021, 03/08/2021, 08/10/2020, Additional history exists Influenza Vaccine (#1) 2025 DTap / Tdap / Td (3 - Td or Tdap) 12/31/2025 01/01/2016, 03/13/2011 Pneumococcal Vaccine Completed 03/20/2019, 03/12/20 17 Shingrix-Zoster Vaccine Completed 03/23/2022, 01/06 Hepatitis B Vaccines Aged Out No long er eligible based on patient's age to complete this topic RSV Ped < 20 months Aged Out No longe r eligible based on patient's age to complete this topic Care Teams Wheel Truer Relationship Specialty Start Date End Date Brandon Bates MD PCP - General Internal Medicine 01/14/22
--- OUTSIDE RECORDS SUMMARY | 2025-03-19 15:12 | XMS_ITS ---
Author Name [facility] Organization Unknown Care Team Organization Name Specialty Phone Email Start Date End Da te [facility] Brandon Bates Primary Care 04/21/2022 01/31/20 24
== END 2025-03-19 13:45 | disposition home or self-care (01) ==
LOC: HO.HSMS 12:50
PROVIDERS: PCP Internal Medicine; Visit Provider Psychiatry & Neurology Neurology
DX: G25.2 Other specified forms of tremor (principal); R20.0 Anesthesia of skin; I72.9 Aneurysm of unspecified site; M25.552 Pain in left hip
CPT/HCPCS: 99214

== ENCOUNTER → 2025-03-19 12:49 | Outpatient (BNVA) | payer MEDICARE, SELFPAY | PROVIDERS: PCP Internal Medicine; Visit Provider Psychiatry & Neurology Neurology | DX: G20.B1 Parkinson's disease with dyskinesia, without mention of fluctuations (principal); G25.2 Other specified forms of tremor; R20.0 Anesthesia of skin; I72.9 Aneurysm of unspecified site; M25.552 Pain in left hip; H93.A3 Pulsatile tinnitus, bilateral | CPT/HCPCS: 99212 ==